=== PATIENT | male | born 1965 | race Caucasian/White ===

== ENCOUNTER → 2023-07-14 06:35 | Outpatient (REF) | payer BC, SELFPAY ==
[2023-07-16 08:43] LABS: Cardiolipin IgA Antibody <10 APL (<=11); Cardiolipin IgM Antibody <10 MPL (<=12); Cardiolipin Igg Antibody <10 GPL (<=14)
[2023-07-16 18:38] LABS: Protein S Total Antigen 108 % (84-134)
[2023-07-16 19:23] LABS: Anti-Thrombin III Activity 116 % (76-128)
[2023-07-16 22:24] LABS: Beta-2-Glycoprotein I Ab. IgG <10 SGU (<=20); Beta-2-Glycoprotein I Ab. IgM <10 SMU (<=20)
[2023-07-17 16:32] LABS: Dil. Russell Viper Venom Time 29 sec (33-44); Partial Thromboplastin Time 40 sec (32-48); Prothrombin Time 13.2 sec (12.0-15.5)
[2023-07-19 15:54] LABS: Factor V Leiden Negative; Factor V Leiden Specimen Whole Blood
[2023-07-21 18:46] LABS: PT (F2) G20210A Variant Negative; Pt Gene Variant-PCR Specimen Whole Blood
== END ==
LOC: REG 06:35
PROVIDERS: ATTENDING PHYSICIAN Internal Medicine Hematology & Oncology; FAMILY PHYSICIAN Nurse Practitioner
DX: I26.99 Other pulmonary embolism without acute cor pulmonale (principal); D72.10 Eosinophilia, unspecified; I82.492 Acute embolism and thrombosis of other specified deep vein of left lower extremity
CPT/HCPCS: 36415; 81240; 81241; 85300; 85305; 85610; 85613; 85730; 86146; 86147

== ENCOUNTER → 2023-07-28 06:45 | Outpatient (REF) | payer BC, SELFPAY ==
[2023-07-29 21:53] LABS: Alk Phos Bone Specific Results 11.5 ug/L (6.5-20.1)
== END ==
LOC: REG 06:45
PROVIDERS: ATTENDING PHYSICIAN Internal Medicine; FAMILY PHYSICIAN Nurse Practitioner
DX: M81.0 Age-related osteoporosis without current pathological fracture (principal)
CPT/HCPCS: 36415; 84075

== ENCOUNTER → 2023-08-25 08:46 | Outpatient (REF) | payer BC, SELFPAY | LOC: RAD 08:46 | PROVIDERS: ATTENDING PHYSICIAN Internal Medicine; FAMILY PHYSICIAN Nurse Practitioner | DX: M81.0 Age-related osteoporosis without current pathological fracture (principal) | CPT/HCPCS: 77080 ==

== ENCOUNTER → 2023-11-03 06:24 | Outpatient (REF) | payer BC, SELFPAY ==
[2023-11-03 08:08] LABS: ALT (SGPT) 28 U/L (0-50); AST (SGOT) 32 U/L (17-59); Alkaline Phosphatase 74 U/L (38-126); Blood Urea Nitrogen 16 mg/dl (9-20); Carbon Dioxide 27 mmol/L (22-30); Chloride 105 mmol/L (98-107); Glucose 94 mg/dl (70-99); Potassium 4.2 mmol/L (3.5-5.1); Sodium 140 mmol/L (135-145); Total Bilirubin 0.8 mg/dl (0.2-1.3); Total Protein 6.5 g/dl (6.3-8.2); eGFR > 60.00
[2023-11-03 08:13] LABS: Vitamin D, 25-OH*** 70.9 ng/mL (30-80)
== END ==
LOC: REG 06:24
PROVIDERS: ATTENDING PHYSICIAN Internal Medicine; FAMILY PHYSICIAN Nurse Practitioner
DX: M81.0 Age-related osteoporosis without current pathological fracture (principal); Z51.81 Encounter for therapeutic drug level monitoring
CPT/HCPCS: 36415; 80053; 82306

== ENCOUNTER 2023-11-04 13:27 | Emergency (ER) | payer BC, SELFPAY ==
[2023-11-04 13:33] VITALS: BP 146/87
--- NOTE | 2023-11-04 15:53 | ED.GENMED ---
History of Present Illness
<Gracia Lozano FLASK PUSHER - Last Filed: 11/06/23 10:24>
General
Chief Complaint: DVT/Possible Blood Clot
Source: patient
Exam Limitations: none
Time Seen by Provider: 11/04/23 13:55
Nursing documentation reviewed up to this point in time: agreed with
Travel History
Have you had any contact with someone who has COVID-19?: No
Do you have any symptoms of coronavirus? Fever > 100 degrees, chills, cough, shortness of breath, sore throat, loss of taste or smell, muscle aches, or headache?: No
History of Present Illness
History of Present Illness:
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 He has had left calf pain for the past few days, yesterday he felt a sharp pain in the mid calf for about 10 minutes. Now the calf is achy and mildly tender. He
denies chest pain or trouble breathing. He does work out every day.
Past History
<Gracia Lozano FLASK PUSHER - Last Filed: 11/06/23 10:24>
Past History
ED Past Medical History: Other (DVT, PE)
ED Past Surgical History: Orthopedic (Has had previous dislocations of the left shoulder)
Social History
Tobacco: Non-smoker
Alcohol: Occasional
Drug: None
Personal:
Living: with family
Employment: Employed
Family History
Family History: Negative Early CAD or CAD
Review of Systems
<Gracia Lozano FLASK PUSHER - Last Filed: 11/06/23 10:24>
Review of Systems
Allergies reviewed?: Yes
All Other Systems: ROS reviewed and negative except as documented in HPI and ROS
Constitutional: Denies fever
Respiratory: Denies trouble breathing
Cardiac: Denies chest pain
ABD/GI: Denies abdominal pain
Musculoskeletal: Reports other (Left calf pain)
Skin: Reports no symptoms
Neurological: Reports no symptoms
Phy Exam
<Gracia Lozano FLASK PUSHER - Last Filed: 11/06/23 10:24>
Physical Exam
Physical Exam:
GENERAL: No acute distress. A&Ox3.
CONSTITUTIONAL: Afebrile.
RESPIRATORY: Regular respirations, nonlabored, lungs clear.
CARDIOVASCULAR: Regular rate and rhythm, no murmurs, no rubs.
GI: Soft, nontender, normal BS
MUSCULOSKELETAL: Left calf is without swelling, redness or warmth. Very mild tenderness mid calf to palpation. Distal neurovascular intact. Moves with ease. Well perfused.
SKIN: Warm, dry, pink
PSYCH: Normal mood and affect. Well kept, interactive and appropriate
NEUROLOGIC: Awake, alert and oriented. No focal neurological deficits
Course
<Gracia Loznao, FLASK PUSHER - Last Filed: 11/06/23 10:24>
Orders/Labs/Results
Orders:
Orders
11/04/23 13:37
Electrocardiogram (*1) Urgent
Reason for Study: Palpitations
11/04/23 13:38
EKG- Treatment ONCE
11/04/23 13:56
US Legs, Left [US Periph Venous LOWER Ext LT] Urgent
Comment:
Reason For Exam: pain, hx clots
11/04/23 16:34
CBC/With Diff [Complete Blood Count/With Diff] Urgent
CMP [Comprehensive Metabolic Panel] Urgent
11/04/23 17:07
Apixaban [Eliquis] 10 mg PO ONCE ONE
Abnormal Lab Results
11/04/23
16:34
MCH 31.4 H pg
(27.0-31.0)
Absolute Monos (auto) 0.7 H 10^3/uL
(0.1-0.6)
Carbon Dioxide 31 H mmol/L
(22-30)
Glucose 111 H mg/dl
(70-99)
11/04/23 16:34
11/04/23 16:34
Vital Signs
Initial and Last Documented VS:
Initial Vital Signs
Temp Pulse Resp BP Pulse Ox
97.6 F 49 18 146/87 98
11/04/23 13:33 11/04/23 13:33 11/04/23 13:33 11/04/23 13:33 11/04/23 13:33
Last Documented Vital Signs
Temp Pulse Resp BP Pulse Ox
97.6 F 49 18 146/87 98
11/04/23 13:33 11/04/23 13:33 11/04/23 13:33 11/04/23 13:33 11/04/23 13:33
<Chris Kay Jr., PA-C - Last Filed: 11/04/23 17:10>
Orders/Labs/Results
Orders:
Orders
11/04/23 13:37
Electrocardiogram (*1) Urgent
Reason for Study: Palpitations
11/04/23 13:38
EKG- Treatment ONCE
11/04/23 13:56
US Legs, Left [US Periph Venous LOWER Ext LT] Urgent
Comment:
Reason For Exam: pain, hx clots
11/04/23 16:34
CBC/With Diff [Complete Blood Count/With Diff] Urgent
CMP [Comprehensive Metabolic Panel] Urgent
11/04/23 17:07
Apixaban [Eliquis] 10 mg PO ONCE ONE
Abnormal Lab Results
11/04/23
16:34
MCH 31.4 H pg
(27.0-31.0)
Absolute Monos (auto) 0.7 H 10^3/uL
(0.1-0.6)
Carbon Dioxide 31 H mmol/L
(22-30)
Glucose 111 H mg/dl
(70-99)
11/04/23 16:34
11/04/23 16:34
Vital Signs
Initial and Last Documented VS:
Initial Vital Signs
Temp Pulse Resp BP Pulse Ox
97.6 F 49 18 146/87 98
11/04/23 13:33 11/04/23 13:33 11/04/23 13:33 11/04/23 13:33 11/04/23 13:33
Last Documented Vital Signs
Temp Pulse Resp BP Pulse Ox
97.6 F 49 18 146/87 98
11/04/23 13:33 11/04/23 13:33 11/04/23 13:33 11/04/23 13:33 11/04/23 13:33
<Gracia Lozano NP - Last Filed: 11/06/23 10:24>
MDM/Problems Addressed
Differential Diagnosis Includes:
DVT, calf muscle strain
MDM/Problems Addressed:
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 He has had left calf pain for the past few days, yesterday he felt a sharp pain in the mid calf for about 10 minutes. Now the calf is achy and mildly tender. He
denies chest pain or trouble breathing. He does work out every day.
3:55 PM
Patient is awaiting ultrasound results
Case discussed with CYNDY Knott who will assume care from this point.
<Chris Kay Jr., PA-C - Last Filed: 11/04/23 17:10>
MDM/Problems Addressed
MDM/Problems Addressed:
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 He has had left calf pain for the past few days, yesterday he felt a sharp pain in the mid calf for about 10 minutes. Now the calf is achy and mildly tender. He
denies chest pain or trouble breathing. He does work out every day.
3:55 PM
Patient is awaiting ultrasound results
Case discussed with CYNDY Knott who will assume care from this point.
Fili Jimenezc//patient was found to have thrombus in the left peroneal posterior tibial and gastrocnemius veins. This was discussed with the patient who started on Eliquis otherwise advised for outpatient management. No chest pain shortness of
breath no symptoms consistent with significant PE. Stable for outpatient management.
<CYNDY Cody Jr.-Quinton - Last Filed: 11/04/23 17:10>
*Critical Care Note
Total Time (30-74mins, 75-104mins- exclusive of procedures): Not Applicable
ED Attending Note
<Gracia Lozano FLASK PUSHER - Last Filed: 11/06/23 10:24>
-
Portions of this chart may have been created with voice recognition software.� Occasional wrong word or��sound alike� substitutions may have occurred due to the inherent limitations of voice recognition software.
Discharge Plan
Departure
Patient Disposition: Home (Routine Discharge)
Date of Disposition: 11/04/23
Time of Disposition: 17:08
Patient with high blood pressure during this ER visit?: No
Condition: Good
Covid-19: Not Applicable
Discharge Problem:
DVT (deep venous thrombosis)
Instructions: Deep Vein Thrombosis (Blood Clots in the Legs) (DC)
Prescriptions:
New
Eliquis DVT-PE Treat 30D Start 5 mg (74 tabs) tablets,dose pack
See Rx Instructions .ROUTE .COMPLEX Qty: 74 0RF
Rx Instructions:
orally per package directions
No Action
glucosamine HCl 750 mg Tablet
750 mg PO DAILY
acetaminophen 325 mg Tablet
650 mg PO Q6HPRN PRN (Reason: mild pain/ fever>100.5F) Qty: 0 0RF
Eliquis 5 mg tablet
5 mg PO BID Qty: 90 0RF
Rx Instructions:
take 10 mg (2 tabs) twice daily x 1 week then 5mg (1 tab) twice daily thereafter
atorvastatin 40 mg tablet
40 mg PO DAILY Qty: 30 0RF
Referrals:
Thuy Valentine CRNP [Family Provider] -
Activity Restrictions/Additional Instructions:
You came to the emergency department today with concerns of leg swelling. You were found to have a DVT. You are started on Eliquis. Please take this as prescribed and follow-up closely as an outpatient. Return to the emergency department any
worsening, new or concerning symptoms
Interventions
Interventions:
*Risk Screen - Suicide Last Done: 11/04/23 13:33
*General Assessment Last Done: 11/04/23 13:33
*Neglect/Abuse Screening Last Done: 11/04/23 13:33
ED- Fall Risk Assessment Last Done: 11/04/23 17:53
*ED COVID-19 Vaccine History Last Done: 11/04/23 17:53
*Nursing Disposition Last Done: 11/04/23 17:53
ED- Cardiac Assessment Last Done: 11/04/23 15:25
ED- Pulmonary Assessment Last Done: 11/04/23 15:25
ED-Peripheral Vascular Assessment Last Done: 11/04/23 17:51
ED-Skin Assessment Last Done: 11/04/23 15:25
Discharge Date and Time
Discharge Date/Time: 11/04/23 17:54
Print Language: ROMANIAN
[2023-11-04 16:47] LABS: % Basophils 1.1 % (0-2); % Eosinophils 2.5 % (0-6); % Immature Granulocytes 0.3 % (0-0.5); % Lymphocytes 25.7 % (20.5-51.1); % Monocytes 8.2 % (1.7-9.3); % Neutrophils 62.2 % (42.2-75.2); Absolute Basophils 0.1 10^3/uL (0-0.2); Absolute Eosinophils 0.2 10^3/uL (0-0.7); Absolute Monocytes 0.7 10^3/uL (0.1-0.6); Absolute Neutrophils 4.9 10^3/uL (1.4-6.5); Hematocrit 41.7 % (39.0-52.0); Hemoglobin 14.8 g/dL (13.0-18.0); Mean Corp Hgb Conc. 35.5 g/dL (33.0-37.0); Mean Corpuscular Hgb 31.4 pg (27.0-31.0); Mean Corpuscular Volume 88.5 fL (80.0-94.0); Mean Platelet Volume 10.1 fL (7.4-10.4); Nucleated Red Blood Cells % 0 % (-); Platelet Count 179 10^3/uL (130-400); Red Blood Cell Count 4.71 10^6/uL (4.70-6.10); Red Cell Dist. Width 12.5 % (11.5-14.5); White Blood Cell Count 7.9 10^3/uL (4.8-10.8)
[2023-11-04 17:05] LABS: ALT (SGPT) 28 U/L (0-50); AST (SGOT) 32 U/L (17-59); Alkaline Phosphatase 74 U/L (38-126); Blood Urea Nitrogen 18 mg/dl (9-20); Calcium 9.5 mg/dl (8.4-10.2); Carbon Dioxide 31 mmol/L (22-30); Chloride 102 mmol/L (98-107); Glucose 111 mg/dl (70-99); Potassium 4.3 mmol/L (3.5-5.1); Sodium 138 mmol/L (135-145); Total Bilirubin 0.6 mg/dl (0.2-1.3); Total Protein 6.5 g/dl (6.3-8.2); eGFR > 60.00
[2023-11-04] MEDS: ELIQUIS 10 MG PO (17:38)
== END 2023-11-04 17:54 | disposition home or self-care (01) ==
LOC: EMR 13:27
PROVIDERS: Physician Assistant; EMERGENCY PHYSICIAN Emergency Medicine; FAMILY PHYSICIAN Nurse Practitioner
DX: I82.452 Acute embolism and thrombosis of left peroneal vein (principal); I82.442 Acute embolism and thrombosis of left tibial vein; I82.462 Acute embolism and thrombosis of left calf muscular vein
CPT/HCPCS: 99285; 80053; 85025; 93005; 93971

== ENCOUNTER 2023-11-10 09:57 | Emergency (ER) | payer BC, SELFPAY ==
[2023-11-10 10:24] VITALS: BP 119/83
--- NOTE | 2023-11-10 10:31 | ED.PDOC.TR ---
ED Provider Triage
-
Patient seen by provider in Triage?: Seen in Triage
58-year-old male with history of DVT and PE, diagnosed with a new DVT in his left lower extremity on Tuesday. Today started to feel little short of breath and was concerned for recurrence of PE. He notes admission in December 2022 for bilateral PEs and
was on heparin. No clear etiology for DVT/PE in the past. CT chest ordered. Patient hemodynamically stable.
[2023-11-10 10:50] LABS: % Immature Granulocytes 0.3 % (0-0.5); % Monocytes 10.1 % (1.7-9.3); % Neutrophils 54.6 % (42.2-75.2); Absolute Basophils 0.1 10^3/uL (0-0.2); Absolute Eosinophils 0.2 10^3/uL (0-0.7); Absolute Lymphocytes 2.1 10^3/uL (1.2-3.4); Absolute Monocytes 0.7 10^3/uL (0.1-0.6); Absolute Neutrophils 3.7 10^3/uL (1.4-6.5); Hematocrit 43.7 % (39.0-52.0); Hemoglobin 15.5 g/dL (13.0-18.0); Mean Corp Hgb Conc. 35.5 g/dL (33.0-37.0); Mean Corpuscular Hgb 31.2 pg (27.0-31.0); Mean Corpuscular Volume 87.9 fL (80.0-94.0); Mean Platelet Volume 9.6 fL (7.4-10.4); Nucleated Red Blood Cells % 0 % (-); Platelet Count 219 10^3/uL (130-400); Red Blood Cell Count 4.97 10^6/uL (4.70-6.10); Red Cell Dist. Width 12.6 % (11.5-14.5); White Blood Cell Count 6.8 10^3/uL (4.8-10.8)
[2023-11-10 11:01] LABS: INR 1.11; PT 14.3 Sec (11.4-14.6)
[2023-11-10 11:02] LABS: APTT 32.5 Sec (23.4-35.0)
[2023-11-10 11:12] LABS: Blood Urea Nitrogen 15 mg/dl (9-20); Calcium 9.7 mg/dl (8.4-10.2); Carbon Dioxide 28 mmol/L (22-30); Chloride 104 mmol/L (98-107); Glucose 97 mg/dl (70-99); Potassium 4.5 mmol/L (3.5-5.1); Sodium 140 mmol/L (135-145); eGFR > 60.00
--- NOTE | 2023-11-10 12:06 | ED.GENMED ---
History of Present Illness
General
Chief Complaint: Breathing Problem
Source: patient
Exam Limitations: none
Time Seen by Provider: 11/10/23 11:47
Nursing documentation reviewed up to this point in time: agreed with
Travel History
Have you had any contact with someone who has COVID-19?: No
Do you have any symptoms of coronavirus? Fever > 100 degrees, chills, cough, shortness of breath, sore throat, loss of taste or smell, muscle aches, or headache?: No
History of Present Illness
History of Present Illness:
Patient is a 58-year-old male who presents to the complaint of shortness of breath and burping. He felt a little short of breath today. He had no associated chest pain. patient was seen here on Tuesday 6 days ago diagnosed with a DVT to his left
leg. Patient is on Eliquis. He reports he initially the way the prescription was written it stated for him to take 5 mg twice daily and not 10 mg twice daily. He found this out on Tuesday when he was seen by his family doctor.
Patient does have history of PE DVT December 2022 and reports also that time he had some burping.
Past History
Past History
ED Past Medical History: Other (DVT, PE)
ED Past Surgical History: Orthopedic (Has had previous dislocations of the left shoulder)
Social History
Tobacco: Non-smoker
Alcohol: Occasional
Drug: None
Personal:
Living: with family
Employment: Employed
Family History
Family History: Negative Early CAD or CAD
Review of Systems
Review of Systems
Allergies reviewed?: Yes
All Other Systems: ROS reviewed and negative except as documented in HPI and ROS
Constitutional: Reports no symptoms; Denies fever, fatigue or chills
EENT: Reports no symptoms
Respiratory: Reports trouble breathing
Cardiac: Reports no symptoms
ABD/GI: Reports other (burping )
: Reports no symptoms
Musculoskeletal: Reports no symptoms
Skin: Reports no symptoms
Neurological: Reports no symptoms
Psychiatric: Reports no symptoms
Phy Exam
General Physical Exam
General Presentation: no apparent distress
General age: appears stated age
General Skin: warm and dry
General Habitus: normal
General Mental: alert
General Hydration: appears well hydrated
Cardiovascular Exam
Cardiovascular Exam: regular rate/rhythm, no murmur and normal peripheral pulses
Pulmonary Exam
Pulmonary Exam: lungs clear and no respiratory distress
Neurological Exam
Neurological Exam: alert and oriented x3
Musculoskeletal Exam
Musculoskeletal Exam: full ROM
Skin Exam
Skin Exam: normal color and warm/dry
Psychiatric Exam
Psychiatric Exam: normal mood/affect
Scores
Heart Failure Risk
Heart Failure Risk Score: Not Applicable
Course
Orders/Labs/Results
Orders:
Orders
11/10/23 10:28
CT Chest Pe Study Urgent
Comment:
Reason For Exam: known DVT, feeling SOB, hx of PE
11/10/23 10:29
Electrocardiogram (*1) Urgent
Reason for Study: Shortness of Breath
EKG- Treatment ONCE
11/10/23 10:44
Basic Metabolic Panel Urgent
Complete Blood Count/With Diff Urgent
PTT Urgent
Prothrombin Time Urgent
11/10/23 14:55
Troponin I Urgent
Abnormal Lab Results
11/10/23
10:44
MCH 31.2 H pg
(27.0-31.0)
Absolute Monos (auto) 0.7 H 10^3/uL
(0.1-0.6)
Monocytes % 10.1 H %
(1.7-9.3)
11/10/23 10:44
11/10/23 10:44
Vital Signs
Initial and Last Documented VS:
Initial Vital Signs
Temp Pulse Resp BP Pulse Ox
98.0 F 51 16 119/83 98
11/10/23 10:24 11/10/23 10:24 11/10/23 10:24 11/10/23 10:24 11/10/23 10:24
Last Documented Vital Signs
Temp Pulse Resp BP Pulse Ox
98.0 F 42 18 119/83 97
11/10/23 10:24 11/10/23 11:43 11/10/23 11:43 11/10/23 10:24 11/10/23 11:43
MDM/Problems Addressed
MDM/Problems Addressed:
Patient is currently being treated for blood clot presents to the ER felt mildly short of breath and hiccups. He felt similar to this in the past when he had a PE and was concerned about that. Patient presents awake alert no acute distress lungs
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 He is nontachypneic nonhypoxic nontachycardic clear lungs. CT negative for PE patient does have lung nodules which she is aware of.
Negative no chest pain. Patient is no acute distress looks well stable for discharge
Chronic conditions affecting care:
DVT on eliquis previous PE
*Radiology
Radiology exam reviewed: radiology read reviewed
*Pulse Oximetry
Patient hypoxic: no
*EKG
Interpreted by ED Provider?: Yes
Interpretation: abnormal
Heart Rate: 44
Rate: bradycardiac
Rhythm: sinus
Ischemia: no ischemia
*Critical Care Note
Total Time (30-74mins, 75-104mins- exclusive of procedures): Not Applicable
ED Attending Note
-
Portions of this chart may have been created with voice recognition software.� Occasional wrong word or��sound alike� substitutions may have occurred due to the inherent limitations of voice recognition software.
Discharge Plan
Departure
Patient Disposition: Home (Routine Discharge)
Date of Disposition: 11/10/23
Time of Disposition: 15:33
Patient with high blood pressure during this ER visit?: No
Covid-19: Not Applicable
Discharge Problem:
Acute dyspnea
Instructions: Shortness of Breath, Adult ED
Prescriptions:
No Action
glucosamine HCl 750 mg Tablet
750 mg PO DAILY
acetaminophen 325 mg Tablet
650 mg PO Q6HPRN PRN (Reason: mild pain/ fever>100.5F) Qty: 0 0RF
Eliquis 5 mg tablet
5 mg PO BID Qty: 90 0RF
Rx Instructions:
take 10 mg (2 tabs) twice daily x 1 week then 5mg (1 tab) twice daily thereafter
atorvastatin 40 mg tablet
40 mg PO DAILY Qty: 30 0RF
Eliquis DVT-PE Treat 30D Start 5 mg (74 tabs) tablets,dose pack
See Rx Instructions .ROUTE .COMPLEX Qty: 74 0RF
Rx Instructions:
orally per package directions
Referrals:
Thuy Valentine CRNP [Family Provider] -
Activity Restrictions/Additional Instructions:
Continue to take your Eliquis as discussed. Follow-up with your family doctor in the next several days. Your labs and CAT scan were negative for any acute findings. Return if any worsening of symptoms.
Interventions
Interventions:
*ED COVID-19 Vaccine History Last Done: 11/10/23 10:24
ED- Cardiac Assessment Last Done: 11/10/23 11:42
ED- Pulmonary Assessment Last Done: 11/10/23 11:42
Discharge Date and Time
Print Language: CITIZEN OF [place]
[2023-11-10 15:27] LABS: Troponin I < 0.012 ng/ml
[2023-11-10 15:47] VITALS: BP 111/76
== END 2023-11-10 15:50 | disposition home or self-care (01) ==
LOC: EMR 09:57
PROVIDERS: Nurse Practitioner; Physician Assistant Medical; EMERGENCY PHYSICIAN Emergency Medicine; FAMILY PHYSICIAN Nurse Practitioner
DX: R06.00 Dyspnea, unspecified (principal); Z79.01 Long term (current) use of anticoagulants; Z86.711 Personal history of pulmonary embolism; Z86.718 Personal history of other venous thrombosis and embolism
CPT/HCPCS: 99284; 71275; 80048; 84484; 85025; 85610; 85730; 93005; Q9967

== ENCOUNTER → 2024-07-06 13:03 | Outpatient (REF) | payer BC, SELFPAY ==
[2024-07-06 13:46] LABS: ALT (SGPT) 30 U/L (0-50); AST (SGOT) 30 U/L (17-59); Albumin 4.8 g/dl (3.5-5.0); Alkaline Phosphatase 104 U/L (38-126); Blood Urea Nitrogen 24 mg/dl (9-20); Calcium 10.6 mg/dl (8.4-10.2); Carbon Dioxide 30 mmol/L (22-30); Chloride 98 mmol/L (98-107); Glucose 132 mg/dl (70-99); Potassium 4.6 mmol/L (3.5-5.1); Sodium 135 mmol/L (135-145); Total Bilirubin 1.1 mg/dl (0.2-1.3); Total Protein 6.9 g/dl (6.3-8.2); eGFR > 60.00
[2024-07-06 14:03] LABS: Vitamin D, 25-OH*** 74.9 ng/mL (30-80)
== END ==
LOC: REG 13:03
PROVIDERS: ATTENDING PHYSICIAN Internal Medicine; FAMILY PHYSICIAN Nurse Practitioner
DX: M81.0 Age-related osteoporosis without current pathological fracture (principal); Z51.81 Encounter for therapeutic drug level monitoring; Z71.89 Other specified counseling
CPT/HCPCS: 36415; 80053; 82306

== ENCOUNTER → 2024-07-25 06:36 | Outpatient (REF) | payer BC, SELFPAY ==
[2024-07-25 07:27] LABS: % Basophils 1.3 % (0-2); % Eosinophils 3.2 % (0-6); % Immature Granulocytes 0.3 % (0-0.5); % Neutrophils 58.2 % (42.2-75.2); Absolute Basophils 0.1 10^3/uL (0-0.2); Absolute Eosinophils 0.2 10^3/uL (0-0.7); Absolute Monocytes 0.5 10^3/uL (0.1-0.6); Hematocrit 44.5 % (39.0-52.0); Hemoglobin 15.9 g/dL (13.0-18.0); Mean Corp Hgb Conc. 35.7 g/dL (33.0-37.0); Mean Corpuscular Hgb 32.1 pg (27.0-31.0); Mean Corpuscular Volume 89.9 fL (80.0-94.0); Mean Platelet Volume 10.1 fL (7.4-10.4); Nucleated Red Blood Cells % 0 % (-); Platelet Count 227 10^3/uL (130-400); Red Blood Cell Count 4.95 10^6/uL (4.70-6.10); Red Cell Dist. Width 12.8 % (11.5-14.5); White Blood Cell Count 6.8 10^3/uL (4.8-10.8)
[2024-07-25 08:11] LABS: ALT (SGPT) 31 U/L (0-50); AST (SGOT) 30 U/L (17-59); Albumin 4.6 g/dl (3.5-5.0); Alkaline Phosphatase 109 U/L (38-126); Blood Urea Nitrogen 24 mg/dl (9-20); Calcium 10.1 mg/dl (8.4-10.2); Carbon Dioxide 30 mmol/L (22-30); Chloride 101 mmol/L (98-107); Glucose 90 mg/dl (70-99); HDL Cholesterol 69 mg/dl; LDL Cholesterol, Calculated 147 mg/dl; Potassium 4.3 mmol/L (3.5-5.1); Sodium 137 mmol/L (135-145); Total Cholesterol 243 mg/dl (50-199); Total Protein 6.8 g/dl (6.3-8.2); Triglyceride 135 mg/dl (10-149); Very Low Density Lipoprotein 27 mg/dl (0-30); eGFR > 60.00
[2024-07-25 08:21] LABS: C-Reactive Protein < 5.00 mg/L (0.0-10.00)
[2024-07-25 08:52] LABS: PSA, Total - Screen 0.76 ng/ml (0.0-4.0)
[2024-07-25 09:11] LABS: Vitamin B12 531 pg/ml (239-931)
[2024-07-25 09:14] LABS: Erythrocyte Sed Rate 8 mm/hour (0-20)
[2024-07-25 11:04] LABS: Glycohemoglobin (HgbA1c) 5.5 % (4.0-5.6)
== END ==
LOC: REG 06:36
PROVIDERS: ATTENDING PHYSICIAN Nurse Practitioner
DX: Z00.00 Encounter for general adult medical examination without abnormal findings (principal); I82.409 Acute embolism and thrombosis of unspecified deep veins of unspecified lower extremity; I26.99 Other pulmonary embolism without acute cor pulmonale; D72.19 Other eosinophilia; R73.01 Impaired fasting glucose; Z12.5 Encounter for screening for malignant neoplasm of prostate; Z87.39 Personal history of other diseases of the musculoskeletal system and connective tissue
CPT/HCPCS: 36415; 80053; 80061; 82607; 83036; 84443; 85025; 85652; 86140; G0103

== ENCOUNTER 2024-08-05 10:33 | Emergency (ER) | payer BC, SELFPAY ==
[2024-08-05 10:36] VITALS: BP 111/88
--- NOTE | 2024-08-05 11:17 | ED.GENMED ---
History of Present Illness
General
Chief Complaint: DVT/Possible Blood Clot
Source: patient and records
Exam Limitations: none
Time Seen by Provider: 08/05/24 11:04
History of Present Illness
History of Present Illness:
58yoM with a history of prior DVT/PE presenting for evaluation of left calf pain x several days. Patient reports an aching pain in the lateral aspect of the left calf over the past few days. He does workout frequently but denies any specific
trauma. Pain feels similar although not as severe as his prior DVT and he wants to be sure it is nothing serious. He denies any chest pain, shortness of breath, syncope. Patient is currently maintained on Eliquis 2.5 mg twice daily. He initially
had a DVT/PE in 2022 and finished his course of anticoagulation. 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 He follows with [facility] and they were unable to pinpoint the exact etiology of his DVTs.
Past History
Past History
ED Past Medical History: Other (DVT, PE)
ED Past Surgical History: Orthopedic (Has had previous dislocations of the left shoulder)
Social History
Tobacco: Non-smoker
Alcohol: Occasional
Drug: None
Personal:
Living: with family
Employment: Employed
Family History
Family History: Negative Early CAD or CAD
Phy Exam
General Physical Exam
General Presentation: well appearing and no apparent distress
General age: appears stated age
General Skin: warm and dry
General Habitus: normal
General Mental: alert
ENT Exam
ENT Exam: normocephalic
Pulmonary Exam
Pulmonary Exam: no respiratory distress
Neurological Exam
Neurological Exam: alert
[place] Coma Scale
Eye Opening: Spontaneous
Verbal Response: Oriented
Motor Response: Obeys Commands
GCS Total Score: 15
Musculoskeletal Exam
Musculoskeletal Exam: other (L leg: No edema or skin changes noted. Extremity is warm and well perfused with 2+ DP pulse.)
Skin Exam
Skin Exam: normal color and warm/dry
Psychiatric Exam
Psychiatric Exam: normal mood/affect
Course
Orders/Labs/Results
Orders:
Orders
08/05/24 10:35
US Periph Venous LOWER Ext LT Urgent
Comment:
Reason For Exam: calf pain, swelling
Vital Signs
Initial and Last Documented VS:
Initial Vital Signs
Temp Pulse Resp BP Pulse Ox
98.8 F 54 17 111/88 94
08/05/24 10:36 08/05/24 10:36 08/05/24 10:36 08/05/24 10:36 08/05/24 10:36
Last Documented Vital Signs
Temp Pulse Resp BP Pulse Ox
98.8 F 54 17 111/88 94
08/05/24 10:36 08/05/24 10:36 08/05/24 10:36 08/05/24 10:36 08/05/24 10:36
MDM/Problems Addressed
Differential Diagnosis Includes:
58yoM here with L calf pain x several days. Hx of DVT x2, currently on Eliquis. Denies trauma. Denies CP/SOB. VSS. He is well appearing in no acute distress. No pitting edema or skin changes noted on exam. LLE is neurovascularly intact. Differential
diagnosis includes: muscular strain vs. DVT
Venous duplex obtained which is negative for DVT. Patient is stable for discharge. Supportive care discussed. Advised f/u with PCP and return to the ED with any new or worsening symptoms. Patient discharged in stable condition.
*Critical Care Note
Total Time (30-74mins, 75-104mins- exclusive of procedures): Not Applicable
ED Attending Note
-
Portions of this chart may have been created with voice recognition software.� Occasional wrong word or��sound alike� substitutions may have occurred due to the inherent limitations of voice recognition software.
Discharge Plan
Departure
Patient Disposition: Home (Routine Discharge)
Date of Disposition: 08/05/24
Time of Disposition: 12:32
Patient with high blood pressure during this ER visit?: No
Discharge Problem:
Pain of left calf
Instructions: Muscle, joint, and bone pain - Discharge instructions
Prescriptions:
No Action
glucosamine HCl 750 mg Tablet
750 mg PO DAILY
acetaminophen 325 mg Tablet
650 mg PO Q6HPRN PRN (Reason: mild pain/ fever>100.5F) Qty: 0 0RF
Eliquis 5 mg tablet
5 mg PO BID Qty: 90 0RF
Rx Instructions:
take 10 mg (2 tabs) twice daily x 1 week then 5mg (1 tab) twice daily thereafter
atorvastatin 40 mg tablet
40 mg PO DAILY Qty: 30 0RF
Eliquis DVT-PE Treat 30D Start 5 mg (74 tabs) tablets,dose pack
See Rx Instructions .ROUTE .COMPLEX Qty: 74 0RF
Rx Instructions:
orally per package directions
Activity Restrictions/Additional Instructions:
Your ultrasound was negative for DVT.
Apply heat to affected area and take Tylenol as needed.
Please follow-up with your family doctor. Return to the ER with any new or worsening symptoms.
Interventions
Interventions:
*Risk Screen - Suicide Last Done: 08/05/24 10:38
*General Assessment Last Done: 08/05/24 10:38
*Neglect/Abuse Screening Last Done: 08/05/24 10:38
*ED COVID-19 Vaccine History Last Done: 08/05/24 10:38
Discharge Date and Time
Print Language: BELARUSIAN
== END 2024-08-05 13:02 | disposition home or self-care (01) ==
LOC: EMR 10:33
PROVIDERS: EMERGENCY PHYSICIAN Emergency Medicine
DX: M79.662 Pain in left lower leg (principal); Z86.711 Personal history of pulmonary embolism; Z86.718 Personal history of other venous thrombosis and embolism; Z79.01 Long term (current) use of anticoagulants
CPT/HCPCS: 99284; 93971

== ENCOUNTER → 2024-10-31 07:41 | Outpatient (REF) | payer BC, SELFPAY | LOC: HWRAD 07:41 | PROVIDERS: ATTENDING PHYSICIAN Internal Medicine; FAMILY PHYSICIAN Nurse Practitioner | DX: M81.0 Age-related osteoporosis without current pathological fracture (principal) | CPT/HCPCS: 77080 ==